=== PATIENT | female | born 1985 | race Two or more races ===

== ENCOUNTER 2018-12-05 11:45 | Inpatient (IN) | payer OTHER ==
[~2018-12-05] VITALS: Ht 147.3 cm; Wt 138.0 kg
[2019-01-01] MEDS ORDERED: PRENATAL 19 CH1 EAC1 PO (07:49)
== END 2019-01-03 15:48 | disposition home or self-care (01) | DRG 807 ==
LOC: OB/GYN 12-11 11:45 → LDR 01-01 05:53 → OB/GYN 01-01 15:52
PROVIDERS: ADMIT Obstetrics & Gynecology
PROC: 10E0XZZ Delivery of Products of Conception, External Approach (ICD-10-PCS; principal; 2019-01-01)
PROC: 4A1HXCZ Monitoring of Products of Conception, Cardiac Rate, External Approach (ICD-10-PCS; 2019-01-01)
PROC: 4A033R1 Measurement of Arterial Saturation, Peripheral, Percutaneous Approach (ICD-10-PCS; 2019-01-01)
DX: O48.0 Post-term pregnancy (principal); Z37.0 Single live birth; Z3A.41 41 weeks gestation of pregnancy; Z22.330 Carrier of Group B streptococcus